=== PATIENT | male | born 1980 | race Two or more races ===

== ENCOUNTER 2023-10-21 17:12 | Emergency (ER) | payer BC ==
[~2023-10-21] VITALS: Ht 175.3 cm; Wt 77.1 kg
[2023-10-21] MEDS ORDERED: FAMOTIDINE/PF 20 MG/2 ML VIAL IV ONE (17:45)
[2023-10-21] MEDS ORDERED: LACTOBACILLUS ACIDOPHILUS 1 CAP CAP PO ONE (17:45)
[2023-10-21] MEDS ORDERED: ONDANSETRON HCL 2 MG/ML VIAL IV ONE (17:45)
[2023-10-21] MEDS ORDERED: 0.9 % SODIUM CHLORIDE 1,000 ML IV ONE (17:45)
[2023-10-21 18:19] LABS: HEMATOCRIT 43.8 % (39.0-48.0); HEMOGLOBIN 14.8 g/dL (13-16.00); MEAN CORPUSCULAR HEMOGLOBIN 27.3 pg (27.00-32.0); MEAN CORPUSCULAR HGB CONC 33.7 g/dl (32.0-36.0); PLATELET COUNT 176 K/uL (150-450); RED BLOOD COUNT 5.41 M/uL (4.00-6.00); RED CELL DISTRIBUTION WIDTH 15.1 % (11.5-14.5)
[2023-10-21 18:37] LABS: CALCIUM 9.1 mg/dL (8.5-10.1); CREATININE SERUM 1.12 mg/dL (0.70-1.30); GFR 71.9; POTASSIUM 3.75 mEq/L (3.5-5.1)
[2023-10-21 21:11] LABS: URINE APPEARANCE Clear; URINE BILIRRUBIN Negative (NEGATIVE); URINE BLOOD Negative; URINE COLOR Yellow; URINE GLUCOSE Negative (NEGATIVE); URINE LEUKOCYTE Negative; URINE NITRATE Negative; URINE PROTEIN Negative (NEGATIVE); URINE UROBILINOGEN 0.2 E.U./dl
[2023-10-21 21:14] LABS: URINE BACTERIA 18.8 uL (0.0-1933); URINE EPITHELIAL CELLS 2.1 uL (0.0-38.8)
[2023-10-21 21:18] LABS: URINE RBC 0.5 uL (0.0-20.8)
[2023-10-21] MEDS ORDERED: ZITHROMAX500 MG PO (22:33)
[2023-10-21] MEDS ORDERED: INTESTINEX680 M1 PO (22:33)
[2023-10-21] MEDS ORDERED: ONDANSETRON ODT4 MG SL (22:33)
[2023-10-21] MEDS ORDERED: PEPCID AC20 MG PO (22:33)
== END 2023-10-21 22:44 ==
LOC: ER 17:12
PROVIDERS: Nurse Practitioner Family
DX: R53.81 Other malaise (principal); R11.2 Nausea with vomiting, unspecified; Z20.822 Contact with and (suspected) exposure to COVID-19; Z91.041 Radiographic dye allergy status